=== PATIENT | female | born 1985 | race Asian ===

== ENCOUNTER → 2020-12-02 11:45 | Outpatient (CLI) | payer BC, SELFPAY ==
--- NOTE | 2020-12-02 11:42 | DI.US.S_ITS ---
LIMITED ULTRASOUND OF LEFT BREAST AND AXILLA: 12/02/2020 CLINICAL: Palpable left breast lump. Comparison is made to exams dated: 12/02/2020 mammogram and 04/12/2017 [facility]. Color flow and real-time ultrasound of the left breast 8-9 o'clock, and axilla regions were performed. Saba scale images of the real-time examination were reviewed. There is a 1.2 cm x 1 cm x 0.6 cm oval mass in the left breast at 8 o'clock anterior depth 3 cm from the nipple. This oval mass is hypoechoic. This correlates as palpated but was not seen on the prior mammogram. There are two small cysts which are immediately adjacent measuring 0.6 cm and 0.4 cm. Alternatively, the lesion could be intraductal. Another simple appearing cyst is located 2.5 cm away at 9 o'clock 4 cm from the nipple measuring 0.5 cm x 0.4 cm x 0.4 cm. No significant abnormalities were seen sonographically in the left axilla. IMPRESSION: SUSPICIOUS OF MALIGNANCY Corresponding to the palpable abnormality is a 1.2 cm x 1 cm x 0.6 cm oval mass in the left breast 8:00 3 cm from the nipple is at a low suspicion for malignancy. The palpable abnormality is reported as hard and fixed. Patient reports spontaneous nipple charge during physical activity that is white and/or serous. An ultrasound guided biopsy is recommended. Exam findings were discussed with the patient. This exam was interpreted at Station ID: [id number]. Electronically Signed By: Gerald Rodriguez M.D. [facility] [place]/:12/02/2020 13:28:05 letter sent: Biopsy Required Ultrasound BI-RADS: 4a Low suspicion for malignancy
--- NOTE | 2020-12-02 11:49 | DI.MG.S_ITS ---
BILATERAL DIGITAL DIAGNOSTIC MAMMOGRAM 3D/2D: 12/02/2020 CLINICAL: Baseline exam. Left breast lump. Baseline exam. No prior exams were available for comparison. The tissue of both breasts is extremely dense, which lowers the sensitivity of mammography. No significant masses, calcifications, or other findings are seen in either breast. IMPRESSION: INCOMPLETE: NEEDS ADDITIONAL IMAGING EVALUATION No mammographic evidence of malignancy. A targeted ultrasound of the palpable abnormality is recommended and will immediately follow. This exam was interpreted at Station ID: [id number]. NOTE: For mammograms, a report in lay terms will be sent to the patient. Approximately 15% of breast malignancies will not be visualized mammographically. In the management of a palpable breast mass, a negative mammogram must not discourage biopsy of a clinically suspicious lesion. Electronically Signed By: Gerald Rodriguez M.D. [facility] [place]/:12/02/2020 12:23:56 ACR BI-RADS Category 0: Incomplete [id number]
--- NOTE | 2020-12-02 11:49 | DI.US.S_ITS ---
PROCEDURE: US BREAST LT LIMITED COMPARISON: None. INDICATIONS: left breast lump FINDINGS: IMPRESSION: Dictated by: Gerald Rodriguez M.D. on 12/02/2020 at 13:19 Approved by: Gerald Rodriguez M.D. on 12/02/2020 at 13:27
== END ==
PROVIDERS: Family Provider Family Medicine; PCP Family Medicine; Referring Provider Family Medicine; Visit Provider Family Medicine
DX: R92.8 Other abnormal and inconclusive findings on diagnostic imaging of breast (principal); N63.24 Unspecified lump in the left breast, lower inner quadrant; N60.02 Solitary cyst of left breast
CPT/HCPCS: 76642; 77066; G0279

== ENCOUNTER → 2020-12-17 13:10 | Outpatient (CLI) | payer BC, SELFPAY ==
--- NOTE | 2020-12-17 | DI.MG.S_ITS ---
UNILATERAL LEFT DIGITAL DIAGNOSTIC MAMMOGRAM 3D/2D POST-NEEDLE BIOPSY: 12/17/2020 CLINICAL: Post clip placement. Comparison is made to exam dated: 12/02/2020 mammogram - [facility]. The tissue of left breast is extremely dense, which lowers the sensitivity of mammography. There is a marker clip in the appropriate position in the left breast middle depth central to the nipple seen on the craniocaudal view only. This marker clip placement is at the biopsy site. IMPRESSION: POST PROCEDURE MAMMOGRAM FOR MARKER PLACEMENT There was a successful marker clip placement in the left breast middle depth central to the nipple seen on the craniocaudal view only. This exam was interpreted at Station ID: [id number]. NOTE: For mammograms, a report in lay terms will be sent to the patient. Approximately 15% of breast malignancies will not be visualized mammographically. In the management of a palpable breast mass, a negative mammogram must not discourage biopsy of a clinically suspicious lesion. Electronically Signed By: Nevaeh Polo M.D. [facility]/:12/17/2020 16:35:35 ACR BI-RADS Category Post-procedure mammogram for marker placement
--- NOTE | 2020-12-17 | PATH_ITS ---
[facility] Accession Number: [id number] . 01 Material submitted: . breast - LEFT BREAST MASS 9:00 3 CM FN . 02 Diagnosis: Left Breast Mass 9 o'clock, 3 cm from Nipple, Ultrasound-Guided Needle Core Biopsy: Fragmented papillary lesion, favor benign intraductal papilloma. Negative for atypia or malignancy by immunohistochemistry studies. . MRV 12/23/2020 1649 Local . 02 Comment: As part of routine water quality tester, this case was also reviewed by Dr. Rebollar, who agrees with the interpretation. . 02 Electronically signed: . Stacey Atkinson MD, Pathologist NPI- [id number] . 01 Gross description: . The specimen is received in formalin, labeled left breast mass 9 o'clock, 3 cm from nipple are multiple martin fragments of fibroadipose tissue measuring 2.0 x 1.8 x 0.3 cm in aggregate. The specimen is entirely submitted in cassette A1. . Formalin fixation time: Approximately 24 hours. (EA:[id number]) /MRV 12/18/2020 1142 Local . 02 Microscopic: . An immunostain for p63 and myosin is performed on block A1 to evaluate the cells of interest and is present around regions of interest. The control stain showed appropriate reactivity. . The presence of p63 and smooth muscle myosin around the regions of interest mitigates against the presence of invasive tumor in this biopsy. . ER: Variable staining in region of interest. CK5/6: Mosaic pattern predominantly present in region of interest. . The variable staining of estrogen receptor and predominant mosaic pattern of CK 5/6 mitigates against the presence of atypia at the foci of interest. . . 02 Pathologist provided ICD-10: N63.20 . 02 CPT . 192786, C06827 Performed at: 01 [facility] [address] [place] [address], [place], [place] [id number] MD Govind Scott MD Phone: [phone] Performed at: 02 [facility] [address] [place], [place] [id number] MD Shira Rebollar MD Phone: [phone]
--- NOTE | 2020-12-17 13:11 | DI.US.S_ITS ---
ULTRASOUND GUIDED BIOPSY LEFT BREAST USING VACUUM DEVICE WITH MARKING DEVICE INSERTED: 12/17/2020 CLINICAL: Left breast mass biopsy. PATIENT CONSENT: Risks (minor bleeding, infection, vasovagal reaction and repeat procedure), benefits and alternatives were explained to the patient and written informed consent was obtained. Correlation is made to exams dated: 12/17/2020 mammogram, 12/02/2020 ultrasound, and 12/02/2020 mammogram - [facility]. An ultrasound guided biopsy using real-time ultrasound was performed for the circumscribed oval mass located in the left breast at 9 o'clock middle depth. This was described on the previous mammography and ultrasound reports. The skin was prepped in the usual manner. Topical and local anesthetic was administered to the access site. A small incision was made in the breast. The abnormality was approached from the medial aspect. A biopsy needle was placed adjacent to the abnormality under ultrasound guidance. Once the needle was documented to be in the correct location, a specimen was obtained using the Mammotome biopsy system. A titanium clip was inserted into the biopsy cavity. A sterile dressing was applied to the access site. The specimen was sent to the laboratory for pathological analysis. IMPRESSION: ULTRASOUND GUIDED BIOPSY HIGH RISK BENIGN Ultrasound guided biopsy of the mass in the left breast at 9 o'clock middle depth was successful. 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 Pathology results are concordant with imaging findings. A surgical consultation is recommended. This exam was interpreted at Station ID: [id number]. Nevaeh Elizabeth M.D. [facility]/:12/25/2020 17:37:36
== END ==
PROVIDERS: Family Provider Family Medicine; PCP Family Medicine; Referring Provider Family Medicine; Visit Provider Family Medicine
DX: D24.2 Benign neoplasm of left breast (principal)
CPT/HCPCS: 19083; 77065

== ENCOUNTER → 2021-11-11 09:10 | Outpatient (CLI) | payer OTHER, SELFPAY ==
--- NOTE | 2021-11-11 | DI.US.S_ITS ---
LIMITED ULTRASOUND OF LEFT BREAST AND AXILLA: 11/11/2021 CLINICAL: Palpable left axilla lump. follow up previous biopsy left breast mass. Comparison is made to exams dated: 12/17/2020 ultrasound biopsy, 12/17/2020 mammogram, 12/02/2020 mammogram, and 12/02/2020 ultrasound [facility]. Color flow and real-time ultrasound of the left breast 9 o'clock, and axilla regions were performed. Saba scale images of the real-time examination were reviewed. There is a 2.9 cm x 2 cm x 1 cm oval mass in the left breast at 9 o'clock anterior depth 3 cm from the nipple. This oval mass is hypoechoic. This abnormality is increased in size and correlates as palpated and with the previous biopsy. Color flow imaging demonstrates that there is vascularity present. No significant abnormalities were seen sonographically in the left axilla. Small lymph node in the palpable region with a short axis diameter of 0.5 cm and cortical thickness of 0.2 cm is benign. 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 A surgical consult is recommended. No enlarged axillary lymph nodes. Exam findings were conveyed to the patient. Subsequently findings were discussed with the patient by Dr. Rodriguez over the phone. This exam was interpreted at Station ID: [id number]. Electronically Signed By: Gerald Rodriguez M.D. [facility]/:11/11/2021 10:25:15 letter sent: Clinical Evaluation Ultrasound BI-RADS: 6 Known biopsy proven malignancy
== END ==
PROVIDERS: Family Provider Family Medicine; PCP Family Medicine; Referring Provider Surgery; Visit Provider Surgery
DX: R92.8 Other abnormal and inconclusive findings on diagnostic imaging of breast (principal); D24.2 Benign neoplasm of left breast; N63.32 Unspecified lump in axillary tail of the left breast
CPT/HCPCS: 76642

== ENCOUNTER 2021-12-29 06:56 | Day surgery (SDC) | payer OTHER, SELFPAY ==
[2021-12-24 14:42] VITALS: BMI 21.9
--- NOTE | 2021-12-29 | PATH_ITS ---
[facility] Accession Number: [id number] . 01 Material submitted: . breast - LEFT BREAST MASS . 01 Diagnosis: Left Breast, Resection: Intraductal papilloma. Negative for atypical ductal hyperplasia, ductal carcinoma in situ, and invasive malignancy. [facility] 01/01/2022 1408 Local . 01 Comment: *Immunostains are performed on block A2, with the controls stained appropriately. The p63 shows positive staining around the lesional glands/ducts throughout the tumor; cytokeratin 5/6 shows uniform expression; estrogen receptor is focally positive. These findings, in conjunction with the morphologic features, are characteristic of an intraductal papilloma without involvement by an in situ carcinoma or atypical ductal hyperplasia. . * This test was developed and its performance characteristics determined by [employer]. It has not been cleared or approved by the U.S. Food and Drug Administration. The FDA has determined that such clearance or approval is not necessary. This test is used for clinical purposes. It should not be regarded as investigational or for research. . 01 Electronically signed: . Lorri Dubose MD, Pathologist NPI- [id number] . 01 Gross description: . Received in formalin in the specimen container labeled with the patient's name, medical record number and left breast mass is an unoriented martin and partially yellowish soft tissue fragment that measures 4.2 x 1.5 x 1.2 cm. The specimen outer surface is entirely inked in blue. The specimen is serially sectioned to reveal a cyst-like structure within the cut surfaces that measures 2.1 x 1.0 x 1.0 cm in greatest dimension. The cyst-like structure is filled by slightly yellowish friable content. The wall thickness averages 0.2 mm. The cyst-like structure grossly abuts the resection margin. No other distinct lesions are grossly identified. The remainder of cut surfaces are solid, martin-pink, with slightly irregular pattern. Upsetter Helper sections are sequentially submitted in cassettes A1-A3. The specimen remainder is entirely submitted in cassettes A4-A6. (KV:[id number]) /MRV 12/31/2021 1250 Local . 01 Pathologist provided ICD-10: N63.20 . 01 CPT . 922002, H40669, I72951 Specimen Comment: A courtesy copy of this report has been sent to [phone] Performed at: 01 [facility] [address] [place] [address], [place], [place] [id number] MD Govind Scott MD Phone: [phone]
--- NOTE | 2021-12-29 | DI.MG.S_ITS ---
SPECIMEN: 12/29/2021 CLINICAL: Clip verification left brreast--surgery specimen. Correlation is made to exams dated: 11/11/2021 ultrasound, 12/17/2020 mammogram, and 12/02/2020 mammogram - [facility]. Left breast lumpectomy specimen contains the biopsy clip. IMPRESSION: SPECIMEN Left breast lumpectomy specimen contains the biopsy clip. This exam was interpreted at Station ID: [id number]. Gerald Rodriguez M.D. [facility]/:12/29/2021 10:48:26
[2021-12-29] MEDS: LACTATED RINGERS 1,000 ML 100 ML IV (07:06)
[2021-12-29 07:21] VITALS: BP 109/66; PULSE 65; RESP 16; TEMP 37; O2SAT 100; BMI 21.9
[2021-12-29 07:22] LABS: COVID19 -Nasal RAPID Negative (Negative)
[2021-12-29] MEDS: SCOPOLAMINE 1 PATCH TOP (07:40)
--- NOTE | 2021-12-29 07:51 | PM.HP.1 ---
History of Present Illness History of Present Illness Date Patient Seen: 12/29/21 Time Patient Seen: 07:52 Chief complaint: DCC Narrative: Lance is here for her left breast excisional biopsy. See office note for details. Patient History Medical History Former smoker Surgical History H/O elbow surgery (09/2014) Family & Social History Family History Father Hypertension Diabetes mellitus Cancer Social History: household members spouse,children Tobacco & Substance use: Tobacco type cigarettes Smoking Status Former smoker alcohol intake current alcohol intake frequency holiday/special occasion Meds Home Medications and Allergies Home Medications Medication Instructions Recorded Confirmed Type cholecalciferol (vitamin D3) 100 100 mcg PO DAILY 04/25/20 12/29/21 History mcg (4,000 unit) capsule magnesium oxide 500 mg tablet 500 mg PO DAILY 02/06/21 12/29/21 History zinc acetate 50 mg (zinc) capsule 50 mg PO DAILY 02/06/21 12/29/21 History (Galzin) Allergies Allergy/AdvReac Type Severity Reaction Status Date / Time No Known Allergies Allergy Uncoded 12/29/21 07:06 Exam Vital Signs (past 8 hours): - 12/29/21 07:21 Temperature 98.6 F Pulse Rate 65 Respiratory Rate 16 Blood Pressure 109/66 Pulse Oximetry 100 Oxygen Delivery Method Room Air Oxygen Delivery Method Room Air Narrative Exam Narrative: Left breast medial 1 cm mass Objective Labs Labs: Laboratory Results - last 24 hr 12/29/21 06:40 SARS-CoV-2 (PCR) Negative Assessment & Plan Assessment and plan (1) Left breast lump: Qualifiers: Breast mass location: lower inner quadrant Qualified Code(s): N63.24 - Unspecified lump in the left breast, lower inner quadrant Status: Acute Plan Proceed with excisional biopsy of left breast mass Time Spent With Patient Critical Care time: I spent a total of [] minutes of critical care time on this patient's care today; this time is exclusive of procedural time.
--- NOTE | 2021-12-29 08:06 | SUR.OPER ---
Supine on padded OR bed, head on pillow, arms secured on padded arm boards at <90 degrees abduction, legs uncrossed, safety belt at thigh, tape over blanket over lower legs.
[2021-12-29] MEDS: LIDOCAINE 1% W/EPI 20 ML INJ (08:15)
[2021-12-29] MEDS: BUPIVACAINE 0.25% (PF) VIAL 30 ML INJ (08:15)
[2021-12-29 09:11] VITALS: BP 107/60; PULSE 68; RESP 12; TEMP 36.4; O2SAT 99
[2021-12-29 09:16] VITALS: BP 103/63; PULSE 58; RESP 14; O2SAT 100
--- NOTE | 2021-12-29 09:16 | PM.OP.1 ---
Operative Date/Time/Diagnoses Date of procedure: 12/29/21 Time of procedure: 09:16 Pre-op diagnosis: Left breast intraductal papilloma Post-op diagnosis: same Procedure & Clinicians Procedure: Excision of left breast intraductal papilloma Same procedure as scheduled: Yes Surgeon: Dyllan Bragg Anesthesia Type: General Operative Notes Procedure in detail: Patient was examined in the preop holding area and the left breast was marked. The location of the mass was confirmed with the patient. The patient was then brought to the operating room placed on the operating room table in the supine position with the left arm out. General anesthesia was induced via LMA. The left breast was prepped and draped in the usual fashion and a time-out was performed. Mass was located near the medial border of the left areolar border. Lidocaine with epinephrine was injected into the skin and subcutaneous tissue and a 3 cm incision was made along the medial area lower border. Cautery was used to dissect through the dermis and subcutaneous adipose tissue until we encountered the mass itself. The mass was dissected free from the surrounding dense breast tissue using a combination of cautery, sharp scissors and blunt dissection. There was some clear fluid that was expressed from the specimen as well as some of the surrounding tissue. The mass seemed to track and a superior medial direction. The deepest aspect of the dissection reached the pectoral fascia. Once the lesion was completely removed it was sent for a specimen mammogram and then sent to pathology in formalin. The specimen mammogram demonstrated the mass and the marker. The wound cavity was then irrigated with saline. Few small bleeders were cauterized. Additional Marcaine was injected into the pectoral tissue and into the surrounding soft tissue. The wound was then closed in layers using multiple interrupted 3-0 Vicryl dermal sutures and or running 4 Monocryl subcuticular closure. Steri-Strips and Telfa were applied followed by a breast binder. EBL: 15 mL Specimen: Left breast mass Post-operative Condition: stable Disposition: PACU
[2021-12-29 09:20] VITALS: BP 105/64; PULSE 66; RESP 14; TEMP 36.4; O2SAT 100
[2021-12-29 09:30] VITALS: BP 122/69; PULSE 68; RESP 16; TEMP 36.5; O2SAT 100
--- NOTE | 2021-12-29 09:46 | SUR.PHASEII ---
Discharge instructions reviewed with patient and spouse with time for questions. Pt A&Ox4, denies any distress, and ready to discharge home. Dressing c/d/i. Pt left unit with all personal belongings including written instructions, ear chargers and cell phone, via w/c to ER entrance to meet spouse who will transport pt home.
== END 2021-12-29 09:42 | disposition home or self-care (01) ==
PROVIDERS: Family Provider Family Medicine; PCP Family Medicine; Referring Provider Surgery; Visit Provider Surgery
PROC: (CPT 19301; principal; 2021-12-29 07:45)
DX: D24.2 Benign neoplasm of left breast (principal)
CPT/HCPCS: 19301; 76098; 87635; C9803; J1100; J1885; J2250; J2405; J2704; J3010

== ENCOUNTER → 2025-01-30 13:52 | Outpatient (CLI) | payer BC, SELFPAY ==
--- NOTE | 2025-01-30 13:53 | DI.US.S_ITS ---
PROCEDURE: US CHEST COMPARISON: None. INDICATIONS: Mass upper chest/clavicular area left side FINDINGS: Ill-defined isoechoic area in the region of the left infraclavicular region measuring 4.8 x 3.6 x 1 cm. No hyperemia. No posterior acoustic features. No adenopathy or fluid collection. IMPRESSION: Possible lipoma in the region of the left infraclavicular neck palpable abnormality measuring 4.8 cm. Recommend clinical correlation. If clinically indicated CT chest with IV contrast could be considered for further evaluation. Dictated by: Gerald Rodriguez M.D. on 01/31/2025 at 13:03 Approved by: Gerald Rodriguez M.D. on 01/31/2025 at 13:08
== END ==
PROVIDERS: Family Provider Family Medicine; PCP Family Medicine; Referring Provider Physician Assistant; Visit Provider Physician Assistant
DX: R22.2 Localized swelling, mass and lump, trunk (principal)
CPT/HCPCS: 76604